=== PATIENT | male | born 1980 | race Caucasian/White ===

== ENCOUNTER → 2017-08-27 15:45 | Outpatient (CLI) | payer BC, SELFPAY ==
[2017-08-27 17:41] LABS: International Normalized Ratio 2.8; Prothrombin Time (Protime)PT. 28.3 SECONDS (11.7-14.9)
== END ==
PROVIDERS: Family Provider Student in an Organized Health Care Education/Training Program; PCP Student in an Organized Health Care Education/Training Program; Visit Provider Internal Medicine Cardiovascular Disease
DX: Z79.01 Long term (current) use of anticoagulants (principal); Z98.890 Other specified postprocedural states; Z95.2 Presence of prosthetic heart valve
CPT/HCPCS: 36415; 85610

== ENCOUNTER 2017-10-05 14:54 | Outpatient (RCR) | payer BC, SELFPAY ==
[2017-10-05 17:12] LABS: International Normalized Ratio 2.5; Prothrombin Time (Protime)PT. 26.8 SECONDS (11.7-14.9)
== END 2017-10-05 15:00 | disposition home or self-care (01) ==
LOC: LAB 14:54
PROVIDERS: Family Provider Student in an Organized Health Care Education/Training Program; PCP Student in an Organized Health Care Education/Training Program; Visit Provider Internal Medicine Cardiovascular Disease
DX: Z79.01 Long term (current) use of anticoagulants (principal); Z95.2 Presence of prosthetic heart valve; Z98.890 Other specified postprocedural states
CPT/HCPCS: 36415; 85610

== ENCOUNTER 2017-11-11 16:16 | Outpatient (RCR) | payer BC, SELFPAY ==
[2017-11-11 16:42] LABS: International Normalized Ratio 2.5; Prothrombin Time (Protime)PT. 27.2 SECONDS (11.7-14.9)
== END 2017-11-11 17:00 | disposition home or self-care (01) ==
LOC: LAB 16:16
PROVIDERS: Family Provider Student in an Organized Health Care Education/Training Program; PCP Student in an Organized Health Care Education/Training Program; Visit Provider Internal Medicine Cardiovascular Disease
DX: Z79.01 Long term (current) use of anticoagulants (principal); Z95.2 Presence of prosthetic heart valve; Z98.890 Other specified postprocedural states
CPT/HCPCS: 36415; 85610

== ENCOUNTER 2017-12-22 15:06 | Outpatient (RCR) | payer BC, SELFPAY ==
[2017-12-22 16:41] LABS: International Normalized Ratio 2.5; Prothrombin Time (Protime)PT. 27.3 SECONDS (11.7-14.9)
== END 2017-12-22 16:00 | disposition home or self-care (01) ==
LOC: LAB 15:06
PROVIDERS: Family Provider Student in an Organized Health Care Education/Training Program; PCP Student in an Organized Health Care Education/Training Program; Visit Provider Internal Medicine Cardiovascular Disease
DX: Z79.01 Long term (current) use of anticoagulants (principal); Z95.2 Presence of prosthetic heart valve; Z98.890 Other specified postprocedural states
CPT/HCPCS: 36415; 85610

== ENCOUNTER 2018-02-09 15:04 | Outpatient (RCR) | payer BC, SELFPAY ==
[2018-02-09 15:48] LABS: International Normalized Ratio 3.2; Prothrombin Time (Protime)PT. 32.8 SECONDS (11.7-14.9)
== END 2018-02-09 16:00 | disposition home or self-care (01) ==
LOC: LAB 15:04
PROVIDERS: Family Provider Student in an Organized Health Care Education/Training Program; PCP Student in an Organized Health Care Education/Training Program; Visit Provider Internal Medicine Cardiovascular Disease
DX: Z79.01 Long term (current) use of anticoagulants (principal); Z95.2 Presence of prosthetic heart valve; Z98.890 Other specified postprocedural states
CPT/HCPCS: 36415; 85610

== ENCOUNTER 2018-04-21 14:50 | Outpatient (RCR) | payer BC, SELFPAY ==
[2018-04-21 16:05] LABS: International Normalized Ratio 3.3; Prothrombin Time (Protime)PT. 33.4 SECONDS (11.7-14.9)
== END 2018-04-21 16:00 | disposition home or self-care (01) ==
LOC: LAB 14:50
PROVIDERS: Family Provider Student in an Organized Health Care Education/Training Program; PCP Student in an Organized Health Care Education/Training Program; Visit Provider Internal Medicine Cardiovascular Disease
DX: Z79.01 Long term (current) use of anticoagulants (principal); Z95.2 Presence of prosthetic heart valve; Z98.890 Other specified postprocedural states
CPT/HCPCS: 36415; 85610

== ENCOUNTER → 2018-05-31 15:10 | Outpatient (CLI) | payer BC, SELFPAY ==
[2018-05-31 16:22] LABS: International Normalized Ratio 3.1; Prothrombin Time (Protime)PT. 32.4 SECONDS (11.7-14.9)
== END ==
PROVIDERS: Family Provider Student in an Organized Health Care Education/Training Program; PCP Student in an Organized Health Care Education/Training Program; Referring Provider Internal Medicine Cardiovascular Disease; Visit Provider Internal Medicine Cardiovascular Disease
DX: Z95.2 Presence of prosthetic heart valve (principal); Z79.01 Long term (current) use of anticoagulants; Z98.890 Other specified postprocedural states
CPT/HCPCS: 36415; 85610

== ENCOUNTER 2018-08-05 15:15 | Outpatient (RCR) | payer BC, SELFPAY ==
[2018-08-05 15:49] LABS: International Normalized Ratio 2.5; Prothrombin Time (Protime)PT. 27.1 SECONDS (11.7-14.9)
== END 2018-08-05 16:00 | disposition home or self-care (01) ==
LOC: LAB 15:15
PROVIDERS: Family Provider Student in an Organized Health Care Education/Training Program; PCP Student in an Organized Health Care Education/Training Program; Referring Provider Internal Medicine Cardiovascular Disease; Visit Provider Internal Medicine Cardiovascular Disease
DX: Z79.01 Long term (current) use of anticoagulants (principal); Z95.2 Presence of prosthetic heart valve; Z98.890 Other specified postprocedural states
CPT/HCPCS: 36415; 85610

== ENCOUNTER → 2018-08-17 16:23 | Outpatient (CLI) | payer BC, SELFPAY ==
[2018-08-17 17:36] LABS: Anion Gap 7 (5-15); BUN 21 mg/dL (7-18); Chloride 107 mmol/L (98-107); Creatinine, Serum 0.91 mg/dL (0.70-1.30); EST Glomerular Filtration Rate 100 mL/min (>60); Est Glom Filt Rate - Afr Amer 120 mL/min (>60); Glucose 86 mg/dL (74-106); Potassium 4.3 mmol/L (3.5-5.1); Sodium Level 142 mmol/L (136-145)
--- OUTSIDE RECORDS SUMMARY | 2018-10-19 22:29 | XMS RPT_ITS ---
:1980 Author Organization [place] Support Name Relationship Address Phone SHANNA BELLAMY Unavailable [address] + [place] [address] URIAH, FLORECITA Unavailable [address] + [place] [address] C [place] Unavailable [address] + [place] [address] URIAH, SHANNA Unavailable [address] + [place] [address] URIAH, FLORECITA Unavailable [address] + [place] [address] C [place] Unavailable [address] + [place] [address] URIAH, SHANNA Unavailable [address] + [place] [address] URIAH, FLORECITA Unavailable [address] + [place] [address] MJC [place] Unavailable [address] + [place] [address] URIAH, SHANNA Unavailable [address] + [place] [address] URIAH, FLORECITA Unavailable [address] + [place] [address] MJC [place] Unavailable [address] + [place] [address] URIAH, SHANNA Unavailable [address] + [place] [address] URIAH, FLORECITA Unavailable [address] + [place] [address] C [place] Unavailable [address] + [place] [address] URIAH, SHANNA Unavailable [address] + [place] [address] URIAH, FLORECITA Unavailable [address] + [place] [address] C [place] Unavailable [address] + [place] [address] URIAH, SHANNA Unavailable [address] + [place] [address] URIAH, FLORECITA Unavailable [address] + [place] [address] C [place] Unavailable [address] + [place] [address] URIAH, SHANNA Unavailable [address] + [place] [address] URIAH, FLORECITA Unavailable [address] + [place] [address] C [place] Unavailable [address] + [place] [address] URIAH, SHANNA Unavailable [address] + [place] [address] URIAH, FLORECITA Unavailable [address] + [place] [address] MJC [place] Unavailable [address] + [place] [address] URIAH, SHANNA Unavailable [address] + [place] [address] URIAH, FLORECITA Unavailable [address] + [place] [address] MJC [place] Unavailable [address] + [place] [address] Care Team Providers Name Role Phone MARY ECHEVERRIA (USER SUPPORT ANALYST SUPERVISOR) Attending Unavailable MARY ECHEVERRIA (USER SUPPORT ANALYST SUPERVISOR) Referring Unavailable MARY ECHEVERRIA (USER SUPPORT ANALYST SUPERVISOR) Referring Unavailable Jeffrey Hernandez Attending Unavailable Chano Valentine Referring Unavailable Jeffrey Hernandez Attending Unavailable Jeffrey Hernandez Referring Unavailable Valentine, Chano Primary Care Unavailable Mary, [place] Attending Unavailable Valentine, Chano Primary Care Unavailable Mary, [place] Attending Unavailable Valentine, Chano Primary Care Unavailable Mary, Jeffrey Attending Unavailable Valentine, Chano Primary Care Unavailable Mary, Jeffrey Referring Unavailable Mary, Jeffrey Attending Unavailable Mary, [place] Referring Unavailable Valentine, Chano Primary Care Unavailable Mary, [place] Attending Unavailable Mary, [place] Referring Unavailable Valentine, Chano Primary Care Unavailable Mary, [place] Attending Unavailable Mary, [place] Referring Unavailable Valentine, Chano Primary Care Unavailable Mary, [place] Attending Unavailable Mary, Jeffrey Referring Unavailable Valentine, Chano Primary Care Unavailable Mary, Jeffrey Attending Unavailable Mary, [place] Referring Unavailable Valentine, Chano Primary Care Unavailable PROBLEMS PROBLEMS DATE TYPE CONDITION / CODE ATTENDING STATUS SOURCE 08/18/2018 Unknown Z95.2 - Presence of Mary, [place] Active [place] prosthetic heart Community valve / Hospital Z95.2(ICD-10) Repository 08/18/2018 Unknown Z98.890 - Other Mary, [place] Active [place] specified Community postprocedural Hospital states / Repository Z98.890(ICD-10) 08/18/2018 Unknown Z86.79 - Personal Mary, [place] Active [place] history of other Community diseases of the Hospital circulatory system / Repository Z86.79(ICD-10) 04/28/2018 Unknown 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, [place] Active [place] (current) use of Community anticoagulants / Hospital Z79.01(ICD-10) Repository 09/16/2017 Active Localized edema / NA Active [facility] R60.0(ICD-10) Clinic Main [place] Repository 08/27/2017 Active Other specified soft NA Active [place] tissue disorders / Clinic Main M79.89(ICD-10) [place] Repository PROCEDURES PROCEDURES No Procedure Records FoundRESULTS RESULTS BASIC METABOLIC Collected: 08/17/2018 Status: F Source: [place] PROFILE (BMP) 4:27 PM [facility] REPOSITORY TYPE CODE TESTS RESULT OUT OF RANGE REFERENCE UNITS LAB L501.0100 74-106 mg/dL Normal GLU 86 Result Comment: Please note revised GLUCOSE reference range effective 2017. LAB L501.1000 7-18 mg/dL High BUN 21 LAB L501.1100 0.70-1.30 mg/dL Normal CREAT,SERUM 0.91 Result Comment: The validity of the calculated GFR AND GFRAA in patients over 70 years has not been determined. Clinical correlation is essential. LAB L501.1110 >60 mL/min Normal EST GFR 100 Result Comment: Non- GFR Calc LAB L501.1115 >60 mL/min Normal EST GFR - AA 120 Result Comment: GFR Calc LAB L501.1300 10-20 RATIO High BUN/CRE 23.0 LAB L501.2200 8.5-10.1 mg/dL CA Normal 9.0 LAB L501.5300 136-145 mmol/L NA Normal 142 LAB L501.5600 3.5-5.1 mmol/L K Normal 4.3 LAB L501.5900 98-107 mmol/L CL Normal 107 LAB L501.6100 21.0-32.0 mmol/L Normal CO2 28.0 LAB L501.6200 5-15 Normal GAP 7 Performed By: #### L500.2500 #### [facility] [address] [place], [address] CARDIOLOGY VISIT Observed: 08/17/2018 Status: F Source: [place] REPORT 4:04 PM [facility] REPOSITORY [facility] [address] [place] [address] OFFICE VISIT Date of Service: 08/17/18 MR#: [id number] Acct: [id number] Name: REMI BELLAMY Rep #: [id number] : 1980 Provider: Jeffrey Hernandez MD Age/Sex: 38/M [place] [facility] [place] Signed [facility] Chief Complaint: Follow-up visit Details: REMI BELLAMY, is a 38 M who presents to the office today for a follow-up visit. He is a gentleman with a history of an abnormal aortic valve who underwent aortic valve replacement with a [employer] mechanical prosthetic valve with a tube graft replacement of the ascending aorta for an ascending aortic aneurysm. He continues to do remarkably well denying any chest pain or shortness of breath or paroxysmal nocturnal dyspnea pedal edema he has had no neck arm or jaw discomfort suggest angina he remains on his anticoagulation. His physical exam here today demonstrates clear lung win regular rate and rhythm a prosthetic mechanical sound with no pedal edema noted. All Intake Vital Signs08/17/18 Height 5 ft 10 in 08/17/18 Weight: 17 lb 08/17/18 Body Mass Index (BMI) 2.4 08/17/18 Blood Pressure 118/82 H H 08/17/18 Blood Pressure Location Lt brachial Intake Visit Reasons: 1 Y FU (we r/s from 06-24 AND 07-15) Esl Teacher Required: No Accompanied by: none Is patient in pain?: No Allergies fentanyl Allergy (Verified 08/17/18 15:45) Itching Medications warfarin 4 mg tablet 4 mg PO .COMPLEX #180 tab 08/21/17 [Rx Confirmed 08/17/18] warfarin 6 mg tablet 6 mg PO .COMPLEX #180 tab 08/21/17 [Rx Confirmed 08/17/18] [facility] Medical History Nonrheumatic mitral (valve) insufficiency (Chronic) Hyperlipidemia (Chronic) History of pericarditis (Chronic) History of bicuspid aortic valve (Chronic) penitentiary current use of anticoagulant (Chronic) Surgical History H/O thoracic aortic aneurysm repair (Chronic) H/O mechanical aortic valve replacement (Chronic) Family History Mother Hypertension Social History Smoking Status: Former smoker ROS Const Const: Negative for fatigue, weakness, night sweats, excessive sweating, frequent falls, headache(s) or daytime sleepiness Eyes Eyes: Negative for loss of peripheral vision, transient loss of vision, blind spots, double vision or blurry vision ENT ENT: Negative for headache(s), dizziness, balance problems, Nosebleed/epistaxis, tongue swelling or lip swelling Cardio Chest Pain: No Palpitations: No Edema: None Muscle aches with walking: None Resp Respiratory: Negative for SOB at rest, SOB orthopnea\SOB lying down, Cough, paroxysmal nocturnal dyspnea or SOB with activity GI GI: Negative nausea, vomiting, heartburn, black,tarry stools or bright, red blood in stools : Negative for hematuria Musc Musc: Negative for balance problems, muscle aches/ myalgia, muscle weakness or joint pain Skin Skin: Negative non-healing lesions, unusual bruising or rash Neuro Neuro: Negative for weakness, frequent falls, headache(s), double vision, dizziness, lightheadedness, orthostatic symptoms, blurry vision or lack of coordination Gianni Hematologic/Lymphatic: Negative for easy bruising or easy bleeding Endo Endo: Negative for fatigue, excessive sweating, cold intolerance, heat intolerance, increased thirst/drinking or hair loss Psych Psych: Negative for anxiety or depression Allergy Allergy/Immunology: Negative for throat swelling, Negative for tongue swelling, Negative for hives, Negative for rash, Negative for lip swelling Cardiology Exam Const Appearance: cooperative, healthy appearing, well developed, well groomed and no acute distress Nutritional Appearance: well nourished and average body habitus Orientation: alert, awake and oriented x3 Head Head: normal to inspection, normocephalic and atraumatic Ears: hearing grossly normal bilaterally and external ears normal Nose: external nose normal, nasal mucous membranes and turbinates normal, nares normal, septum normal, no nasal discharge Face and Sinus: face symmetric Mouth: oral mucosae normal, tongue normal, oropharynx normal and moist mucous membranes Teeth and gingiva: dentition normal Throat: posterior oropharynx normal, tonsils normal and uvula midline Eyes General: appearance normal, both eyes and all related structures Eyelids: eyelids normal Conjunctivae: conjunctivae normal Pupils: PERRL, normal by confrontation and accommodation normal EOM: EOM intact bilaterally Neck Neck: normal visual inspection, trachea midline and no JVD JVD: +5 Carotids: normal carotid upstroke and bounding pulses Chest Chest inspection: normal inspection of the chest, symmetric chest movement and normal respiratory effort Auscultation: Bilateral: Clear to Auscultation Cardio Palpation: normal PMI Rhythm: regular rhythm Heart sounds: crisp prosthetic S1 and crisp prosthetic S2 GI GI: normal to inspection, soft, no hepatosplenomegaly and bowel sounds present Neuro General: alert, awake, oriented x3, no focal sensory deficit, gait normal and moves all extremities Skin Skin: no rashes or lesions noted Extremities Pulses: Normal: Right Femoral Pulse, Left Femoral Pulse, Right Dorsalis Pedis Pulse, Left Dorsalis Pedis Pulse, Right Posterior Tibial Pulse, Left Posterior Tibial Pulse, Right Radial Pulse, Left Radial Pulse Lower Extremity Edema: None: Bilateral Musculoskel Musculoskeletal: No joint tenderness Psych Psychological: normal affect Assessment AND Plan 1. H/O mechanical aortic valve replacement Z95.2 06/29/2013 @ [facility] per Dr. Garry Flores Plan He does have a mechanical aortic valve replacement. This appears to be functioning well his last echocardiogram was over 3 years ago I recommend that we obtain a repeat CT to assess his aortic valve gradients. He will continue with anticoagulation maintaining his INR of 2.5-3.5. Orders Orders: 2. H/O thoracic aortic aneurysm repair Z98.890; Z86.79 06/29/2013 @ [facility] per Dr. Garry Flores Plan He is status post thoracic aortic aneurysm repair. I recommend that we obtain a CT scan of his chest to ascertain stability of the above. All Thank you for allowing me to participate in the care of your patient. 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) Coding Level of Care Code Off vis,est,level 3 Diagnoses H/O mechanical aortic valve replacement Z95.2 H/O thoracic aortic aneurysm repair Z98.890; Z86.79 Coding Level of Care Code Off vis,est,level 3 Diagnoses H/O mechanical aortic valve replacement Z95.2 H/O thoracic aortic aneurysm repair Z98.890; Z86.79 Supplemental Info Supplemental Information Labs LDL Cholesterol 104 mg/dL (0-130) 03/25/17 HDL Cholesterol 70 mg/dL (40-) 03/25/17 Triglycerides 120 mg/dL (-199) 03/25/17 VLDL Cholesterol 24 mg/dL (5-40) 03/25/17 08/17/18 1604 <Electronically signed by Jeffrey Hernandez MD> Date Jeffrey Hernandez MD Cosigner Signature: Date (if applicable) CC: Chano Cat DO PROTHROMBIN TIME W/INR Collected: 08/05/2018 Status: F Source: [place] 3:16 PM [facility] REPOSITORY TYPE CODE TESTS RESULT OUT OF RANGE REFERENCE UNITS LAB L300.4150 11.7-14.9 SECONDS High PROTIME 27.1 LAB L300.4200 Normal INR 2.5 Performed By: #### L300.3900 #### [facility] [address] [place], [place], [address] (347) PROTHROMBIN TIME W/INR Collected: 05/31/2018 Status: F Source: [place] 3:25 PM [facility] REPOSITORY TYPE CODE TESTS RESULT OUT OF RANGE REFERENCE UNITS LAB L300.4150 11.7-14.9 SECONDS High PROTIME 32.4 LAB L300.4200 Normal INR 3.1 Performed By: #### L300.3900 #### [facility] [address] [place], [address] PROTHROMBIN TIME W/INR Collected: 04/21/2018 Status: F Source: [place] 2:59 PM [facility] REPOSITORY TYPE CODE TESTS RESULT OUT OF RANGE REFERENCE UNITS LAB L300.4150 11.7-14.9 SECONDS High PROTIME 33.4 LAB L300.4200 Normal INR 3.3 Performed By: #### L300.3900 #### [facility] [place], [address] PROTHROMBIN TIME W/INR Collected: 02/09/2018 Status: F Source: [place] 3:14 PM [facility] REPOSITORY Order Comment: Comments: STANDING ORDER Comments: STANDING ORDER TYPE CODE TESTS RESULT OUT OF RANGE REFERENCE UNITS LAB L300.4150 11.7-14.9 SECONDS High PROTIME 32.8 LAB L300.4200 Normal INR 3.2 Performed By: #### L300.3900 #### [facility] [address] [place], [address] PROTHROMBIN TIME W/INR Collected: 12/22/2017 Status: F Source: [place] 3:16 PM [facility] REPOSITORY TYPE CODE TESTS RESULT OUT OF RANGE REFERENCE UNITS LAB L300.4150 11.7-14.9 SECONDS High PROTIME 27.3 LAB L300.4200 Normal INR 2.5 Performed By: #### L300.3900 #### [facility] [address] [place], [address] PROTHROMBIN TIME W/INR Collected: 11/11/2017 Status: F Source: [place] 4:20 PM [facility] REPOSITORY TYPE CODE TESTS RESULT OUT OF RANGE REFERENCE UNITS LAB L300.4150 11.7-14.9 SECONDS High PROTIME 27.2 LAB L300.4200 Normal INR 2.5 Performed By: #### L300.3900 #### [facility] [address] [place], [address] PROTHROMBIN TIME W/INR Collected: 10/05/2017 Status: F Source: [place] 3:25 PM [facility] REPOSITORY Order Comment: Comments: Standing Order Comments: Standing Order TYPE CODE TESTS RESULT OUT OF RANGE REFERENCE UNITS LAB L300.4150 11.7-14.9 SECONDS High PROTIME 26.8 LAB L300.4200 Normal INR 2.5 Performed By: #### L300.3900 #### [facility] [address] [place], [address] COMP METABOLIC PANEL Collected: 09/16/2017 Status: F Source: [place] 3:29 PM [facility] REPOSITORY TYPE CODE TESTS RESULT OUT OF REFERENCE UNITS RANGE LAB TP 6.3-8.0 g/dL Protein, Total 7.0 LAB ALB 3.9-4.9 g/dL Albumin 4.5 LAB CA 8.5-10.2 mg/dL Calcium, Total 9.3 LAB TBIL 0.2-1.3 mg/dL Bilirubin, Total 0.5 LAB ALKP 36-108 U/L Alkaline Phosphatase 46 LAB AST 14-40 U/L AST 20 LAB GLU 74-99 mg/dL Glucose 89 Result Comment: The [place] [employer] (ADA) provides guidance for cutoff values for fasting glucose and random glucose. The ADA defines fasting as no caloric intake for at least 8 hours. Fas ting plasma glucose results between 100 to 125 mg/dL indicate increased risk for diabetes (prediabetes). Fasting plasma glucose results greater than or equal to 126 mg/dL meet the criteria for diagnosis of diabetes. In the absence of unequivocal hyperglycemia, results should be confirmed by repeat testing. In a patient with classic symptoms of hyperglycemia or hyperglycemic crisis, random plasma glucose results greater than or equal to 200 mg/dL meet the criteria for diagnosis of diabetes. Reference: Standards of Medical Care in Diabetes 2016, [place] [employer] Association. Diabetes Care. 2016.39(Suppl 1). LAB BUN 9-24 mg/dL BUN 22 LAB CRET 0.73-1.22 mg/dL Creatinine 1.16 LAB NA 136-144 mmol/L Sodium 139 LAB K 3.7-5.1 mmol/L Potassium 4.4 LAB CL 97-105 mmol/L Chloride 103 LAB CO2 22-30 mmol/L CO2 27 LAB AGAP 9-18 mmol/L Anion Gap 9 LAB ALT 10-54 U/L ALT 15 LAB GFRAA eGFR- Amer. >60 LAB GFRNAA . eGFR-All Other Races >60 Result Comment: eGFR (Estimated GFR) Units of measure: mL/min/1.73 meters squared eGFR is derived from the reexpressed MDRD Study equation using the following parameters: serum creatinine, age, gender and race. The creatinine assay has been calibrated to be traceable to IDMS. An eGFR <60 mL/min/1.73m2 for >3 months is consistent with chronic kidney disease. Refer to KDOQI guidelines for clinical interpretation. In patients with unstable renal function, e.g. those with acute kidney injury, the eGFR may not accurately reflect actual GFR. Performed By: #### CMP, NTBNP, CBCDIF #### [facility] [address] [place], [place] [id number] NT PRO BNP Collected: 09/16/2017 Status: F Source: [place] 3:29 PM [facility] REPOSITORY TYPE CODE TESTS RESULT OUT OF REFERENCE UNITS RANGE LAB PBNP <125 pg/mL PRO B Natr 92 Peptide Performed By: #### CMP, NTBNP, CBCDIF #### [facility] [address] [place], [place] [address] CBC AND DIFFERENTIAL Collected: 09/16/2017 Status: F Source: [place] 3:29 PM [facility] REPOSITORY TYPE CODE TESTS RESULT OUT OF REFERENCE UNITS RANGE LAB WBC 3.70-11.00 k/uL WBC 7.66 LAB RBC 4.20-6.00 m/uL RBC 4.49 LAB HGB 13.0-17.0 g/dL Hemoglobin 13.4 LAB HCT 39.0-51.0 % Hematocrit 40.1 LAB MCV 80.0-100.0 fL MCV 89.3 LAB MCH 26.0-34.0 pG MCH 29.8 LAB MCHC 30.5-36.0 g/dL MCHC 33.4 LAB RDWCV 11.5-15.0 % RDW-CV 13.0 LAB PLTCT 150-400 k/uL Platelet Count 228 LAB MPV 9.0-12.7 fL MPV 11.0 LAB ANEUT % Neut% 66.8 LAB AANEUT 1.45-7.50 k/uL Abs Neut 5.10 LAB ALYMP % Lymph% 24.3 LAB AALYMP 1.00-4.00 k/uL Abs Lymph 1.86 LAB AMONO % Lane% 7.3 LAB AAMONO <0.87 k/uL Abs Lane 0.56 LAB AEOS % Eosin% 0.9 LAB AAEOS <0.46 k/uL Abs Eosin 0.07 LAB ABASO % Baso% 0.7 LAB AABASO <0.11 k/uL Abs Baso 0.05 LAB AUNRBC 0 /100 WBC NRBCs 0.0 LAB ABNRBC <0.01 k/uL Absolute nRBC <0.01 LAB DTYP DTYPE Auto Diff Performed By: #### CMP, NTBNP, CBCDIF #### [facility] [address] [place], [place] [address] PROTHROMBIN TIME W/INR Collected: 08/27/2017 Status: F Source: [place] 4:02 [facility] REPOSITORY TYPE CODE TESTS RESULT OUT OF RANGE REFERENCE UNITS LAB L300.4150 11.7-14.9 SECONDS High PROTIME 28.3 LAB L300.4200 Normal INR 2.8 Performed By: #### L300.3900 #### [facility] [address] [place], [address] PROGRESS Observed: 08/27/2017 Status: COMPLETED Source: [place] 3:42 PM [facility] REPOSITORY HNO ID: [id number] Author: Mary Trevizo (Lashaun) Corniello, USER SUPPORT ANALYST SUPERVISOR Service: (none) Author Type: Nurse Practitioner Type: Progress Notes Filed: 08/27/2017 3:47 PM Note Text: HPI/CC: Remi Bellamy is a 37 year old male who presents for left foot edema that started a few days ago. Reports mild discomfort with ambulation. Denies redness, tenderness, weakness, numbness or tingling, decreased sensation, SOB, CP. Concerned d/t heart hx No known trauma but does drop things on his feet at work. ROS as above, otherwise non-contributory. Reviewed PMHx, PSHx, social Hx, medications and allergies. PHYSICAL EXAMINATION: BP 130/72 Pulse 72 Resp 14 Wt 81.6 kg (180 lb) SpO2 100% BMI 26.2 kg/m2 General appearance: Well appearing, alert, in no acute distress, well-hydrated, well nourished. Skin: Skin color, texture, turgor normal, no suspicious rashes or lesions Lungs: Lungs clear to auscultation. No wheezing, rhonchi, rales Heart: RRR without murmur, gallop, or rubs. No ectopy Feet: Shoes and socks removed, No deformities, ulcers, calluses, normal distal pulses and edema to digits, no erythema, ecchymosis or tenderness to palpation ASSESSMENT/PLAN: 1. Swelling of toe of left foot - ICD9: 729.81, ICD10: M79.89 - XR FOOT GENERAL 3V AP/LAT/OBL LT - RICE therapy and monitor. Mary Echeverria CNP XR FOOT 3V AP/LAT/OBL Observed: 08/27/2017 Status: F Source: [facility] 3:35 PM [facility] REPOSITORY * * *Final Report* * * DATE OF EXAM: Aug 27 2017 3:35PM WOX [id number] - XR FOOT 3V AP/LAT/OBL LT / PROCEDURE REASON: Other specified soft tissue disorders * * * * Physician Interpretation * * * * HISTORY: left dorsal pain across the metatarsal for 3 days. no injury. Other specified soft tissue disorders . TECHNIQUE: XR FOOT 3V AP/LAT/OBL LT Laterality: LEFT Number of different views (projections): 3 COMPARISON: 2014 RESULT: Satisfactory alignment. No discrete soft tissue swelling. No fracture, no focal acute periostitis. IMPRESSION: No active bone or articular disease. Blind Aide: FACUNDO Transcribe Date/Time: Aug 27 2017 9:31P Dictated by : REMI RICHARDSON MD This examination was interpreted and the report reviewed and electronically signed by: REMI RICHARDSON MD on Aug 27 2017 9:33PM EST [id number] PROGRESS Observed: 08/27/2017 Status: COMPLETED Source: [place] 3:28 PM [facility] REPOSITORY HNO ID: [id number] Author: Marge Boss Service: (none) Author Type: (none) Type: Progress Notes Filed: 08/27/2017 3:36 PM Note Text: Radiology Service Progress Note PATIENT NAME: Remi Bellamy DATE OF SERVICE: August 27, 2017 TIME: 3:28 PM PATIENT IDENTITY VERIFICATION COMPLETED USING TWO (2) METHODS: Patient confirmed name verbally and Date of . PATIENT GENDER DATA: Male PATIENT RELEVANT IMPLANT DATA REVIEWED: Not Applicable RADIOLOGY DEPARTMENT: General X-ray: Exam(s) Completed: Lower Extremity X-Ray(s): Foot, Left and Wt. Bearing: PERIPHERAL IV DATA: Not applicable SIGNED BY: Marge Boss August 27, 2017 3:28 PM ALLERGIES ALLERGIES DATE TYPE / CODE NAME / CODE REACTION SEVERITY SOURCE 08/17/2018 Drug fentanyl/[id number] Itching Unknown [facility] Allergy/416 3571(RXNORM) Hospital 191323(SNOM Repository ED CT) 08/25/2013 DRUG FENTANYL ITCHING [facility] INGREDI/419 [facility] [place] 233260(SNOM Repository ED CT) ENCOUNTERS ENCOUNTERS ADMIT/DISCHARGE ACCOUNT ADMITTING ENCOUNTER LOCATION SOURCE NUMBER CLASS 08/17/2018 [id number] [facility] ing:LAB Repository 08/17/2018/08/17/19 [id number] Ambulatory BMSBuilding:[place] [address] Repository 08/05/2018 [id number] Ambulatory [facility] ing:LAB Repository 05/31/2018 [id number] Ambulatory [facility] ing:LAB Repository 04/21/2018/04/21/20 [id number] Ambulatory [address] ing:LAB Repository 02/09/2018/02/10/20 [id number] Ambulatory [facility] [facility] ing:LAB Repository 12/22/2017/12/23/19 [id number] [place] ing:LAB Repository 11/11/2017/11/12/19 [id number] Ambulatory [place] ing:LAB Repository 10/05/2017/10/06/19 [id number] [place] ing:LAB Repository 09/16/2017 [id number] Ambulatory [facility] Repository 08/27/2017 [id number] [facility] ing:LAB Repository 08/27/2017/08/27/19 [id number] Ambulatory [address] Repository 08/27/2017/08/27/19 [id number] Ambulatory [address] Street Repository PAYERS PAYERS ENCOUNTER GUARANTOR PAYER SUBSCRIBER SOURCE 08/17/2018 REMI Garza Primary REMI Huynh [id number] E Insurance:ANTHEMPolic MASSARODOB: [facility] y Number: [id number], [place] [id number] Repository 37043Qcf: (330) Date:3231-68-66VI [phone] () [id number] [place] [address] 40632ST: 08/17/2018 Secondary NOT GIVENUNK [place] Insurance:SELF PAY [facility] Number: Effective Repository Date:2018-08-17 08/17/2018 REMI Garza Primary REMI Huynh [id number] E Insurance:ANTHEMPolic MASSARODOB: [facility] y Number: [id number], [place] [id number] Repository 71640Mwe: (330) Date:1811-52-28OQ [phone] () [id number] [place] [address] 18573QR: 08/17/2018 Secondary NOT GIVENUNK [place] Insurance:SELF PAY [facility] Number: Effective Repository Date:2018-06-23 08/05/2018 REMI Garza Primary REMI K [place] [id number] E Insurance:ANTHEMPolic [place]: [facility] [place] y Number: [id number], [place] [id number] Repository 39408Ewt: (330) Date:0424-25-05HB [phone] () NAIF CRUZ [id number]: 08/05/2018 Secondary NOT GIVENUNK [place] Insurance:SELF PAY [facility] Number: Effective Repository Date:2018-04-28 05/31/2018 REMI Kayla Primary REMI Huynh [id number] E Insurance:ANTHEMPolic [place]AR[place]OB: [facility] [place] y Number: [id number], [place] [id number] Repository 54042Hkj: (330) Date:7287-04-02ZC [phone] () NAIF CRUZ [id number]: 05/31/2018 Secondary NOT GIVENUNK [place] Insurance:SELF PAY [facility] Number: Effective Repository Date:2018-05-31 04/21/2018 Remi Garza Primary Remi Huynh [id number] E Insurance:ANTHEMPolic MassaroDOB: Community [place] y Number: [id number], [place] [id number] Repository 47423Rxe: (330) Date:7332-78-95FZ [phone] () [id number], [place] [address]VV: 04/21/2018 Secondary NOT GIVENUNK [place] Insurance:SELF PAY [facility] Number: Effective Repository Date:2018-02-25 02/09/2018 Remi Garza Primary Remi Huynh [id number] E Insurance:ANTHEMPolic MassaroDOB: Community [place] y Number: [id number] [id number] Repository 26897Fad: (330) Date:7483-18-46PM [phone] () NAIF CRUZ [id number]: 02/09/2018 Secondary NOT GIVENUNK [place] Insurance:SELF PAY [facility] Number: Effective Repository Date:2017-12-24 12/22/2017 Remi Garza Primary Remi Huynh [id number] E Insurance:ANTHEMPolic MassaroDOB: Community [place] y Number: [id number], [place] [id number] Repository 89597Zfo: 330) Date:6644-09-61DV [phone] () [id number], [place] [address]JV: 12/22/2017 Secondary NOT GIVENUNK [place] Insurance:SELF PAY [facility] Number: Effective Repository Date:2017-11-24 11/11/2017 Remi Garza Primary Remi Huynh [id number] Insurance:ANTHEMPolic MassaroDOB: Community [place] y Number: [id number], [place] [id number] Repository 08926Bux: (330) Date:7322-29-40BC [phone] () [id number], [place] [address]WN: 11/11/2017 Secondary NOT GIVENUNK [place] Insurance:SELF PAY [facility] Number: Effective Repository Date:2017-10-26 10/05/2017 Remi Garza Primary Remi Huynh [id number] E Insurance:ANTHEMPolic MassaroDOB: Community [place] y Number: [id number], [place] [id number] Repository 53[address]Ctn: (330) Date:0514-98-20EY [phone] () [id number] [place] [address]NW: 10/05/2017 Secondary NOT GIVENUNK [place] Insurance:SELF PAY [facility] Number: Effective Repository Date:2017-06-28 08/27/2017 Remi Garza Primary Remi Huynh [id number] E Insurance:ANTHEMPolic MassaroDOB: Community [place] y Number: [id number], [place] [id number] Repository 62[address]Txk: ([phone]) Date:5788-41-46DQ [phone] () [id number], [place] [address]HK: 08/27/2017 Secondary NOT GIVENUNK [place] Insurance:SELF PAY [facility]: Effective Repository Date:2017-08-27
== END ==
PROVIDERS: Family Provider Student in an Organized Health Care Education/Training Program; PCP Student in an Organized Health Care Education/Training Program; Referring Provider Internal Medicine Cardiovascular Disease; Visit Provider Internal Medicine Cardiovascular Disease
DX: Z95.2 Presence of prosthetic heart valve (principal)
CPT/HCPCS: 36415; 80048

== ENCOUNTER → 2018-08-24 15:48 | Outpatient (CLI) | payer BC, SELFPAY ==
--- NOTE | 2018-08-24 15:49 | ECHOD_ITS ---
Version 2 Reason For Study: AVR Procedure This was a 2D Doppler, Color Flow transthoracic echocardiogram. Exam performed in department. Left Ventricle Normal LV size. Left ventricular systolic function is normal. The estimated ejection fraction is 55 %. No evidence for diastolic dysfunction. No regional wall motion abnormalities noted. Tricuspid Valve Normal tricuspid valve. Aortic Valve Peak aortic valve gradient 19 mmHg. Mean aortic valve gradient 11 mmHg. Stable appearing mechanical aortic valve apparatus. Great Vessels Normal aortic root. The pulmonary artery is normal size. Normal inferior vena cava. Pericardium/Pleural No pericardial effusion. MMode/2D Measurements & Calculations LVIDd: 4.8 cm IVSd: 1.00 cm LVOT diam: 2.0 cm LVIDs: 2.8 cm LVPWd: 1.1 cm RVDd: 3.9 cm FS: 41.2 % LVOT area: 3.0 cm2 Ao root diam: 2.6 cm LAV(MOD-bp): 42.2 ml LA A4 area: 14.4 cm2 LAV(MOD-bp) Indexed: 21.7 ml/m2 LAV(MOD-sp2): 54.7 ml LAV(MOD-sp4): 32.7 ml LA dimension(2D): 3.3 cm RA A4 area: 14.0 cm2 Time Measurements MV dec time: 0.33 sec Doppler Measurements & Calculations MV E max malik: 54.2 cm/sec Lat Peak E' Malik: 14.5 cm/sec Med Peak E' Malik: 7.7 cm/sec MV A max malik: 41.7 cm/sec E/E' lat: 3.7 E/E' med: 7.0 MV E/A: 1.3 Ao V2 max: 219.2 cm/sec AI max malik: 168.1 cm/sec LV V1 max: 120.9 cm/sec Ao max P.3 mmHg AI max P.3 mmHg LV V1 max P.8 mmHg Ao V2 mean: 156.7 cm/sec LV V1 mean P.7 mmHg Ao mean P.1 mmHg AI dec slope: 156.7 cm/sec2 LV V1 mean: 74.9 cm/sec Ao V2 VTI: 39.1 cm AI P1/2t: 314.2 msec LV V1 VTI: 21.3 cm VICKY(I,D): 1.6 cm2 VICKY(V,D): 1.7 cm2 SV(LVOT): 64.2 ml PA V2 max: 84.6 cm/sec TR max malik: 197.7 cm/sec TR max P.7 mmHg Interpretation Summary Normal LV size. Left ventricular systolic function is normal. The estimated ejection fraction is 55 %. No evidence for diastolic dysfunction. Mean aortic valve gradient 11 mmHg. Stable appearing mechanical aortic valve apparatus. Ordering Physician: Jefrfey Hernandez Referring Physician: RALF CHAVEZ Performed By: Caren Mota, EDCS, RVT
--- NOTE | 2018-08-24 16:32 | CT_ITS ---
STUDY: CTA CHEST REASON FOR EXAM: Male, 38 years old. Aortic valve and aortic repair RADIATION DOSAGE (If Supplied By Facility): CTDIvol = ( 23.46 ) mGy, DLP = ( 636.54 ) mGycm TECHNIQUE: The examination was performed with the intravenous administration of 100 ml of Isovue 300 contrast material. Post-processing of the angiographic images was performed, with multiplanar reformation and 3D reconstruction. Individualized dose optimization techniques were used for this CT. COMPARISON: August 05, 2014 FINDINGS: Normal enhancement of the main pulmonary artery and right and left pulmonary arteries. Normal enhancement of the bilateral peripheral pulmonary arteries. There is no demonstrated pulmonary embolism. There is mild aneurysmal dilatation of the distal ascending aorta proximal to the arch measuring approximately 4 x 3.9 cm. The aorta then becomes more normal caliber at the level of the arch and distally There is no demonstrated aortic dissection. There is prominence of the cardiac silhouette and postsurgical changes status post aortic valve replacement. Normal mediastinum. Normal hilar regions. Normal visualized trachea and bronchi. The lungs are well expanded. There is mild diffuse interstitial thickening. There is no focal infiltration. There is minor atelectasis within the dependent portion of the lungs Normal pleura. Postsurgical changes status post median sternotomy Dorsal spine demonstrates mild spondylosis Normal visualized upper abdomen. 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 Electronically Signed: Lev Little MD at 21:36 EST , Service support ,
== END ==
PROVIDERS: Family Provider Student in an Organized Health Care Education/Training Program; PCP Student in an Organized Health Care Education/Training Program; Referring Provider Internal Medicine Cardiovascular Disease; Visit Provider Internal Medicine Cardiovascular Disease
DX: Z95.2 Presence of prosthetic heart valve (principal); Z86.79 Personal history of other diseases of the circulatory system; Z98.890 Other specified postprocedural states
CPT/HCPCS: 71275; 93306; Q9967

== ENCOUNTER 2018-10-27 14:48 | Outpatient (RCR) | payer BC, SELFPAY ==
[2018-10-27 17:29] LABS: International Normalized Ratio 2.5; Prothrombin Time (Protime)PT. 27.3 SECONDS (11.7-14.9)
== END 2018-11-23 16:00 | disposition home or self-care (01) ==
LOC: LAB 14:48
PROVIDERS: Family Provider Student in an Organized Health Care Education/Training Program; PCP Student in an Organized Health Care Education/Training Program; Referring Provider Internal Medicine Cardiovascular Disease; Visit Provider Internal Medicine Cardiovascular Disease
DX: Z79.01 Long term (current) use of anticoagulants (principal); Z95.2 Presence of prosthetic heart valve; Z98.890 Other specified postprocedural states
CPT/HCPCS: 36415; 85610

== ENCOUNTER 2018-12-10 14:58 | Outpatient (RCR) | payer BC, SELFPAY ==
[2018-12-10 16:00] LABS: International Normalized Ratio 2.5; Prothrombin Time (Protime)PT. 26.8 SECONDS (11.7-14.9)
== END 2018-12-10 16:00 | disposition home or self-care (01) ==
LOC: LAB 14:58
PROVIDERS: Family Provider Student in an Organized Health Care Education/Training Program; PCP Student in an Organized Health Care Education/Training Program; Referring Provider Internal Medicine Cardiovascular Disease; Visit Provider Internal Medicine Cardiovascular Disease
DX: Z79.01 Long term (current) use of anticoagulants (principal); Z95.2 Presence of prosthetic heart valve; Z98.890 Other specified postprocedural states
CPT/HCPCS: 36415; 85610

== ENCOUNTER 2019-02-04 15:49 | Outpatient (RCR) | payer BC, SELFPAY ==
[2019-02-04 17:44] LABS: International Normalized Ratio 2.2; Prothrombin Time (Protime)PT. 24.5 SECONDS (11.7-14.9)
== END 2019-02-04 16:00 | disposition home or self-care (01) ==
LOC: LAB 15:49
PROVIDERS: Family Provider Student in an Organized Health Care Education/Training Program; PCP Student in an Organized Health Care Education/Training Program; Referring Provider Internal Medicine Cardiovascular Disease; Visit Provider Internal Medicine Cardiovascular Disease
DX: Z98.890 Other specified postprocedural states (principal); Z79.01 Long term (current) use of anticoagulants; Z95.2 Presence of prosthetic heart valve
CPT/HCPCS: 36415; 85610

== ENCOUNTER 2019-02-25 15:00 | Outpatient (RCR) | payer BC, SELFPAY ==
[2019-02-25 16:22] LABS: International Normalized Ratio 3.1; Prothrombin Time (Protime)PT. 31.8 SECONDS (11.7-14.9)
== END 2019-02-25 16:00 | disposition home or self-care (01) ==
LOC: LAB 15:00
PROVIDERS: Family Provider Student in an Organized Health Care Education/Training Program; PCP Student in an Organized Health Care Education/Training Program; Referring Provider Internal Medicine Cardiovascular Disease; Visit Provider Internal Medicine Cardiovascular Disease
DX: Z98.890 Other specified postprocedural states (principal); Z79.01 Long term (current) use of anticoagulants; Z95.2 Presence of prosthetic heart valve
CPT/HCPCS: 36415; 85610

== ENCOUNTER 2019-04-01 14:55 | Outpatient (RCR) | payer BC, SELFPAY ==
[2019-04-01 15:42] LABS: International Normalized Ratio 3.3; Prothrombin Time (Protime)PT. 33.8 SECONDS (11.7-14.9)
== END 2019-04-01 17:00 | disposition home or self-care (01) ==
LOC: LAB 14:55
PROVIDERS: Family Provider Student in an Organized Health Care Education/Training Program; PCP Student in an Organized Health Care Education/Training Program; Referring Provider Internal Medicine Cardiovascular Disease; Visit Provider Internal Medicine Cardiovascular Disease
DX: Z98.890 Other specified postprocedural states (principal); Z79.01 Long term (current) use of anticoagulants; Z95.2 Presence of prosthetic heart valve
CPT/HCPCS: 36415; 85610

== ENCOUNTER 2019-05-09 14:49 | Outpatient (RCR) | payer BC, SELFPAY ==
[2019-05-09 15:57] LABS: Prothrombin Time (Protime)PT. 31.3 SECONDS (11.7-14.9)
== END 2019-05-09 18:00 | disposition home or self-care (01) ==
LOC: LAB 14:49
PROVIDERS: Family Provider Student in an Organized Health Care Education/Training Program; PCP Student in an Organized Health Care Education/Training Program; Referring Provider Internal Medicine Cardiovascular Disease; Visit Provider Internal Medicine Cardiovascular Disease
DX: Z98.890 Other specified postprocedural states (principal); Z79.01 Long term (current) use of anticoagulants; Z95.2 Presence of prosthetic heart valve
CPT/HCPCS: 36415; 85610

== ENCOUNTER 2019-06-30 14:58 | Outpatient (RCR) | payer BC, SELFPAY ==
[2019-06-30 16:19] LABS: International Normalized Ratio 3.4; Prothrombin Time (Protime)PT. 34.9 SECONDS (11.7-14.9)
== END 2019-06-30 18:00 | disposition home or self-care (01) ==
LOC: LAB 14:58
PROVIDERS: Family Provider Student in an Organized Health Care Education/Training Program; PCP Student in an Organized Health Care Education/Training Program; Referring Provider Internal Medicine Cardiovascular Disease; Visit Provider Internal Medicine Cardiovascular Disease
DX: Z98.890 Other specified postprocedural states (principal); Z79.01 Long term (current) use of anticoagulants; Z95.2 Presence of prosthetic heart valve
CPT/HCPCS: 36415; 85610

== ENCOUNTER 2019-08-16 15:47 | Outpatient (RCR) | payer BC, SELFPAY ==
[2019-08-16 16:37] LABS: International Normalized Ratio 2.8; Prothrombin Time (Protime)PT. 29.4 SECONDS (11.7-14.9)
== END 2019-08-16 18:00 | disposition home or self-care (01) ==
LOC: LAB 15:47
PROVIDERS: Family Provider Student in an Organized Health Care Education/Training Program; PCP Student in an Organized Health Care Education/Training Program; Referring Provider Internal Medicine Cardiovascular Disease; Visit Provider Internal Medicine Cardiovascular Disease
DX: Z98.890 Other specified postprocedural states (principal); Z79.01 Long term (current) use of anticoagulants; Z95.2 Presence of prosthetic heart valve
CPT/HCPCS: 36415; 85610

== ENCOUNTER 2019-12-15 09:45 | Outpatient (RCR) | payer BC, SELFPAY ==
[2019-08-16 16:00] VITALS: BMI 26.2
[2019-12-15 11:27] LABS: International Normalized Ratio 2.8; Prothrombin Time (Protime)PT. 29.3 SECONDS (11.7-14.9)
== END 2019-12-15 18:00 | disposition home or self-care (01) ==
LOC: LAB 09:45
PROVIDERS: Family Provider Student in an Organized Health Care Education/Training Program; PCP Student in an Organized Health Care Education/Training Program; Referring Provider Internal Medicine Cardiovascular Disease; Visit Provider Internal Medicine Cardiovascular Disease
DX: Z98.890 Other specified postprocedural states (principal); Z79.01 Long term (current) use of anticoagulants; Z95.2 Presence of prosthetic heart valve
CPT/HCPCS: 36415; 85610

== ENCOUNTER 2020-01-02 15:49 | Outpatient (RCR) | payer BC, SELFPAY ==
[2019-08-16 16:00] VITALS: BMI 26.2
[2020-01-02 16:47] LABS: Prothrombin Time (Protime)PT. 31.1 SECONDS (11.7-14.9)
[2020-01-03 10:15] LABS: HIV - WCH Non-Reactive (Nonreactive); Hepatitis B Surface Antigen Non-Reactive (Nonreactive); Hepatitis C Antibody Non-Reactive (Nonreactive)
[2020-01-05 01:57] LABS: Rapid Plasmin Reagin (RPR) NONREACTIVE (NONREACTIVE)
== END 2020-01-02 18:00 | disposition home or self-care (01) ==
LOC: LAB 15:49
PROVIDERS: Family Provider Student in an Organized Health Care Education/Training Program; PCP Student in an Organized Health Care Education/Training Program; Referring Provider Internal Medicine Cardiovascular Disease; Visit Provider Internal Medicine Cardiovascular Disease
DX: Z95.2 Presence of prosthetic heart valve (principal); Z79.01 Long term (current) use of anticoagulants; Z98.890 Other specified postprocedural states; Z11.3 Encounter for screening for infections with a predominantly sexual mode of transmission
CPT/HCPCS: 36415; 85610; 86592; 86703; 86803; 87340

== ENCOUNTER 2020-03-21 15:36 | Outpatient (RCR) | payer BC, SELFPAY ==
[2019-08-16 16:00] VITALS: BMI 26.2
[2020-03-21 16:12] LABS: Prothrombin Time (Protime)PT. 36.6 SECONDS (11.7-14.9)
[2020-03-21 16:30] LABS: International Normalized Ratio 3.7
== END 2020-03-26 18:00 | disposition home or self-care (01) ==
LOC: LAB 15:36
PROVIDERS: Family Provider Student in an Organized Health Care Education/Training Program; PCP Student in an Organized Health Care Education/Training Program; Referring Provider Internal Medicine Cardiovascular Disease; Visit Provider Internal Medicine Cardiovascular Disease
DX: Z95.2 Presence of prosthetic heart valve (principal); Z79.01 Long term (current) use of anticoagulants; Z98.890 Other specified postprocedural states
CPT/HCPCS: 36415; 85610

== ENCOUNTER 2020-04-18 14:26 | Outpatient (RCR) | payer BC, SELFPAY ==
[2019-08-16 16:00] VITALS: BMI 26.2
[2020-04-05 18:00] LABS: Prothrombin Time (Protime)PT. 37.1 SECONDS (11.7-14.9)
[2020-04-05 18:23] LABS: International Normalized Ratio 3.8
[2020-04-18 14:58] LABS: International Normalized Ratio 2.7; Prothrombin Time (Protime)PT. 27.8 SECONDS (11.7-14.9)
== END 2020-04-18 18:00 | disposition home or self-care (01) ==
LOC: LAB 14:26
PROVIDERS: Family Provider Student in an Organized Health Care Education/Training Program; PCP Student in an Organized Health Care Education/Training Program; Referring Provider Internal Medicine Cardiovascular Disease; Visit Provider Internal Medicine Cardiovascular Disease
DX: Z95.2 Presence of prosthetic heart valve (principal); Z79.01 Long term (current) use of anticoagulants; Z98.890 Other specified postprocedural states
CPT/HCPCS: 36415; 85610

== ENCOUNTER 2020-05-02 15:45 | Outpatient (RCR) | payer BC, SELFPAY ==
[2019-08-16 16:00] VITALS: BMI 26.2
[2020-05-02 16:16] LABS: International Normalized Ratio 2.7; Prothrombin Time (Protime)PT. 28.3 SECONDS (11.7-14.9)
== END 2020-05-02 18:00 | disposition home or self-care (01) ==
LOC: LAB 15:45
PROVIDERS: Family Provider Student in an Organized Health Care Education/Training Program; PCP Student in an Organized Health Care Education/Training Program; Referring Provider Internal Medicine Cardiovascular Disease; Visit Provider Internal Medicine Cardiovascular Disease
DX: Z95.2 Presence of prosthetic heart valve (principal); Z79.01 Long term (current) use of anticoagulants; Z98.890 Other specified postprocedural states
CPT/HCPCS: 36415; 85610

== ENCOUNTER 2020-06-04 14:54 | Outpatient (RCR) | payer BC, SELFPAY ==
[2019-08-16 16:00] VITALS: BMI 26.2
[2020-06-04 15:49] LABS: Prothrombin Time (Protime)PT. 35.6 SECONDS (11.7-14.9)
[2020-06-04 16:24] LABS: International Normalized Ratio 3.6
== END 2020-06-04 18:00 | disposition home or self-care (01) ==
LOC: LAB 14:54
PROVIDERS: Family Provider Student in an Organized Health Care Education/Training Program; PCP Student in an Organized Health Care Education/Training Program; Referring Provider Internal Medicine Cardiovascular Disease; Visit Provider Internal Medicine Cardiovascular Disease
DX: Z98.890 Other specified postprocedural states (principal); Z95.2 Presence of prosthetic heart valve; Z79.01 Long term (current) use of anticoagulants
CPT/HCPCS: 36415; 85610

== ENCOUNTER 2020-06-26 14:52 | Outpatient (RCR) | payer BC, SELFPAY ==
[2019-08-16 16:00] VITALS: BMI 26.2
[2020-06-26 16:13] LABS: International Normalized Ratio 2.6; Prothrombin Time (Protime)PT. 27.5 SECONDS (11.7-14.9)
== END 2020-06-26 18:00 | disposition home or self-care (01) ==
LOC: LAB 14:52
PROVIDERS: Family Provider Student in an Organized Health Care Education/Training Program; PCP Student in an Organized Health Care Education/Training Program; Referring Provider Internal Medicine Cardiovascular Disease; Visit Provider Internal Medicine Cardiovascular Disease
DX: Z98.890 Other specified postprocedural states (principal); Z95.2 Presence of prosthetic heart valve; Z79.01 Long term (current) use of anticoagulants
CPT/HCPCS: 36415; 85610

== ENCOUNTER 2020-08-16 15:37 | Outpatient (RCR) | payer BC, SELFPAY ==
[2019-08-16 16:00] VITALS: BMI 26.2
[2020-08-16 17:21] LABS: Prothrombin Time (Protime)PT. 30.4 SECONDS (11.7-14.9)
== END 2020-08-16 18:00 | disposition home or self-care (01) ==
LOC: LAB 15:37
PROVIDERS: Family Provider Student in an Organized Health Care Education/Training Program; PCP Student in an Organized Health Care Education/Training Program; Referring Provider Internal Medicine Cardiovascular Disease; Visit Provider Internal Medicine Cardiovascular Disease
DX: Z98.890 Other specified postprocedural states (principal); Z95.2 Presence of prosthetic heart valve; Z79.01 Long term (current) use of anticoagulants
CPT/HCPCS: 36415; 85610

== ENCOUNTER 2020-10-02 14:49 | Outpatient (RCR) | payer BC, SELFPAY ==
[2020-08-16 16:16] VITALS: BMI 26.6
[2020-10-02 15:53] LABS: International Normalized Ratio 3.2; Prothrombin Time (Protime)PT. 32.8 SECONDS (11.7-14.9)
== END 2020-10-02 18:00 | disposition home or self-care (01) ==
LOC: LAB 14:49
PROVIDERS: Family Provider Student in an Organized Health Care Education/Training Program; PCP Student in an Organized Health Care Education/Training Program; Referring Provider Internal Medicine Cardiovascular Disease; Visit Provider Internal Medicine Cardiovascular Disease
DX: Z98.890 Other specified postprocedural states (principal); Z95.2 Presence of prosthetic heart valve; Z79.01 Long term (current) use of anticoagulants
CPT/HCPCS: 36415; 85610

== ENCOUNTER 2021-01-21 15:20 | Outpatient (RCR) | payer BC, SELFPAY ==
[2020-08-16 16:16] VITALS: BMI 26.6
[2021-01-19 11:41] LABS: HIV - WCH Non-Reactive (Nonreactive); Hepatitis B Surface Antigen Non-Reactive (Nonreactive); Syphilis Antibodies Non-reactive
[2021-01-21 16:21] LABS: International Normalized Ratio 2.9; Prothrombin Time (Protime)PT. 29.6 SECONDS (11.7-14.9)
== END 2021-01-21 18:00 | disposition home or self-care (01) ==
LOC: LAB 15:20
PROVIDERS: Family Provider Student in an Organized Health Care Education/Training Program; PCP Student in an Organized Health Care Education/Training Program; Referring Provider Internal Medicine Cardiovascular Disease; Visit Provider Internal Medicine Cardiovascular Disease
DX: Z95.2 Presence of prosthetic heart valve (principal); Z98.890 Other specified postprocedural states; Z79.01 Long term (current) use of anticoagulants
CPT/HCPCS: 36415; 85610; 86703; 86780; 87340

== ENCOUNTER 2021-04-09 14:53 | Outpatient (RCR) | payer BC, SELFPAY ==
[2020-08-16 16:16] VITALS: BMI 26.6
[2021-04-09 16:46] LABS: International Normalized Ratio 2.7; Prothrombin Time (Protime)PT. 28.1 SECONDS (11.7-14.9)
== END 2021-04-09 18:00 | disposition home or self-care (01) ==
LOC: LAB 14:53
PROVIDERS: Family Provider Student in an Organized Health Care Education/Training Program; PCP Student in an Organized Health Care Education/Training Program; Referring Provider Internal Medicine Cardiovascular Disease; Visit Provider Internal Medicine Cardiovascular Disease
DX: Z98.890 Other specified postprocedural states (principal); Z95.2 Presence of prosthetic heart valve; Z79.01 Long term (current) use of anticoagulants
CPT/HCPCS: 36415; 85610

== ENCOUNTER 2021-06-04 14:48 | Outpatient (RCR) | payer BC, SELFPAY ==
[2021-04-25 21:18] VITALS: BMI 26.6
[2021-06-04 17:04] LABS: International Normalized Ratio 2.9; Prothrombin Time (Protime)PT. 29.7 SECONDS (11.7-14.9)
== END 2021-06-25 18:00 | disposition home or self-care (01) ==
LOC: LAB 14:48
PROVIDERS: Family Provider Student in an Organized Health Care Education/Training Program; PCP Student in an Organized Health Care Education/Training Program; Referring Provider Internal Medicine Cardiovascular Disease; Visit Provider Internal Medicine Cardiovascular Disease
DX: Z98.890 Other specified postprocedural states (principal); Z95.2 Presence of prosthetic heart valve; Z79.01 Long term (current) use of anticoagulants
CPT/HCPCS: 36415; 85610

== ENCOUNTER 2021-08-08 15:15 | Outpatient (RCR) | payer BC, SELFPAY ==
[2021-06-26 03:26] VITALS: BMI 26.6
[2021-08-08 16:21] LABS: International Normalized Ratio 2.9; Prothrombin Time (Protime)PT. 29.1 SECONDS (11.7-14.9)
== END 2021-08-26 18:00 | disposition home or self-care (01) ==
LOC: LAB 15:15
PROVIDERS: Physician Assistant Medical; Family Provider Student in an Organized Health Care Education/Training Program; PCP Student in an Organized Health Care Education/Training Program; Referring Provider Internal Medicine Cardiovascular Disease; Visit Provider Internal Medicine Cardiovascular Disease
DX: Z11.3 Encounter for screening for infections with a predominantly sexual mode of transmission (principal)
CPT/HCPCS: 36415; 85610

== ENCOUNTER 2021-08-19 13:46 | Outpatient (CLI) | payer BC, SELFPAY ==
--- NOTE | 2021-08-19 14:10 | ECHOD_ITS ---
Reason For Study: valvle replacement Procedure This was a 2D Doppler, Color Flow transthoracic echocardiogram. Exam performed in department. Left Ventricle Normal LV size. Left ventricular systolic function is normal. The estimated ejection fraction is 55 %. Post operative septal motion. No evidence for diastolic dysfunction. No regional wall motion abnormalities noted. Right Ventricle Normal RV size. Normal systolic function. Atria Normal left atrium. Normal right atrium. Mitral Valve Normal mitral valve. Tricuspid Valve Normal tricuspid valve. Mild tricuspid valve insufficiency. Pulmonary artery systolic pressure is 20 mmHg. Aortic Valve Peak aortic valve gradient 23 mmHg. Mean aortic valve gradient 13 mmHg. Stable appearing mechanical aortic valve apparatus. Pulmonic Valve Normal pulmonic valve. Great Vessels Normal aortic root. The pulmonary artery is normal size. Normal inferior vena cava. Pericardium/Pleural No pericardial effusion. MMode/2D Measurements & Calculations LVIDd: 5.2 cm IVSd: 1.1 cm LVOT diam: 2.1 cm LVIDs: 3.7 cm LVPWd: 1.2 cm LVOT area: 3.3 cm2 RVDd: 3.8 cm FS: 29.4 % Ao root diam: 3.5 cm LAV(MOD-sp4): 55.3 ml LA A4 area: 19.4 cm2 LA dimension(2D): 4.1 cm RA A4 area: 18.5 cm2 Time Measurements MV dec time: 0.22 sec Doppler Measurements & Calculations MV E max malik: 64.5 cm/sec Lat Peak E' Malik: 13.3 cm/sec Med Peak E' Malik: 9.1 cm/sec MV A max malik: 38.9 cm/sec E/E' lat: 4.8 E/E' med: 7.1 MV E/A: 1.7 Ao V2 max: 243.6 cm/sec LV V1 max: 98.3 cm/sec SV(LVOT): 76.1 ml Ao max P.7 mmHg LV V1 max P.9 mmHg Ao V2 mean: 167.2 cm/sec LV V1 mean P.2 mmHg Ao mean P.5 mmHg LV V1 mean: 70.7 cm/sec Ao V2 VTI: 50.1 cm LV V1 VTI: 22.9 cm VICKY(I,D): 1.5 cm2 VICKY(V,D): 1.3 cm2 PA V2 max: 90.8 cm/sec TR max malik: 201.7 cm/sec PI dec slope: 149.1 cm/sec2 TR max P.3 mmHg ECHO/Echo Complete Interpretation Summary Normal LV size. Left ventricular systolic function is normal. The estimated ejection fraction is 55 %. No evidence for diastolic dysfunction. Pulmonary artery systolic pressure is 20 mmHg. Stable appearing mechanical aortic valve apparatus. Mean aortic valve gradient 13 mmHg. Compared to the previous the above is essentially unchanged Ordering Physician: Garima Michael Referring Physician: Chano Valentine Performed By: Caitlin Red RDCS, RVT
== END 2021-08-19 23:59 | disposition short-term general hospital (02) ==
PROVIDERS: PCP Student in an Organized Health Care Education/Training Program; Visit Provider Physician Assistant Medical
DX: Z98.890 Other specified postprocedural states (principal); Z95.2 Presence of prosthetic heart valve
CPT/HCPCS: 93306

== ENCOUNTER 2021-10-16 14:40 | Outpatient (RCR) | payer BC, SELFPAY ==
[2021-08-27 01:17] VITALS: BMI 26.6
[2021-10-16 15:37] LABS: International Normalized Ratio 3.4; Prothrombin Time (Protime)PT. 33.6 SECONDS (11.7-14.9)
== END 2021-10-24 18:00 | disposition home or self-care (01) ==
LOC: LAB 14:40
PROVIDERS: Family Provider Student in an Organized Health Care Education/Training Program; PCP Student in an Organized Health Care Education/Training Program; Referring Provider Internal Medicine Cardiovascular Disease; Visit Provider Internal Medicine Cardiovascular Disease
DX: Z95.2 Presence of prosthetic heart valve; Z98.890 Other specified postprocedural states; Z79.01 Long term (current) use of anticoagulants
CPT/HCPCS: 36415; 85610

== ENCOUNTER 2021-12-31 15:22 | Outpatient (RCR) | payer BC, SELFPAY ==
[2021-10-25 02:33] VITALS: BMI 26.6
[2021-12-31 16:30] LABS: Prothrombin Time (Protime)PT. 30.6 SECONDS (11.7-14.9)
== END 2021-12-31 23:59 | disposition home or self-care (01) ==
LOC: LAB 15:22
PROVIDERS: Family Provider Student in an Organized Health Care Education/Training Program; PCP Student in an Organized Health Care Education/Training Program; Referring Provider Internal Medicine Cardiovascular Disease; Visit Provider Internal Medicine Cardiovascular Disease
DX: Z98.890 Other specified postprocedural states; Z95.2 Presence of prosthetic heart valve; Z79.01 Long term (current) use of anticoagulants
CPT/HCPCS: 36415; 85610

== ENCOUNTER 2022-02-26 15:15 | Outpatient (RCR) | payer BC, SELFPAY ==
[2022-01-24 07:06] VITALS: BMI 26.6
[2022-02-26 17:18] LABS: International Normalized Ratio 3.3; Prothrombin Time (Protime)PT. 33.1 SECONDS (11.7-14.9)
== END 2022-02-26 18:00 | disposition home or self-care (01) ==
LOC: LAB 15:15
PROVIDERS: Family Provider Student in an Organized Health Care Education/Training Program; PCP Student in an Organized Health Care Education/Training Program; Referring Provider Internal Medicine Cardiovascular Disease; Visit Provider Internal Medicine Cardiovascular Disease
DX: Z98.890 Other specified postprocedural states (principal); Z95.2 Presence of prosthetic heart valve; Z79.01 Long term (current) use of anticoagulants
CPT/HCPCS: 36415; 85610

== ENCOUNTER 2022-04-21 15:06 | Outpatient (RCR) | payer BC, SELFPAY ==
[2022-03-26 23:08] VITALS: BMI 26.6
[2022-04-21 16:36] LABS: International Normalized Ratio 3.6; Prothrombin Time (Protime)PT. 35.4 SECONDS (11.7-14.9)
== END 2022-04-21 18:00 | disposition home or self-care (01) ==
LOC: LAB 15:06
PROVIDERS: Family Provider Student in an Organized Health Care Education/Training Program; PCP Student in an Organized Health Care Education/Training Program; Referring Provider Internal Medicine Cardiovascular Disease; Visit Provider Internal Medicine Cardiovascular Disease
DX: Z79.01 Long term (current) use of anticoagulants (principal); Z95.2 Presence of prosthetic heart valve
CPT/HCPCS: 36415; 85610

== ENCOUNTER 2022-05-08 14:52 | Outpatient (RCR) | payer BC, SELFPAY ==
[2022-04-25 21:39] VITALS: BMI 26.6
[2022-05-08 15:53] LABS: International Normalized Ratio 2.2; Prothrombin Time (Protime)PT. 23.9 SECONDS (11.7-14.9)
== END 2022-05-08 18:00 | disposition home or self-care (01) ==
LOC: LAB 14:52
PROVIDERS: Family Provider Student in an Organized Health Care Education/Training Program; PCP Student in an Organized Health Care Education/Training Program; Referring Provider Internal Medicine Cardiovascular Disease; Visit Provider Internal Medicine Cardiovascular Disease
DX: Z79.01 Long term (current) use of anticoagulants (principal); Z95.2 Presence of prosthetic heart valve
CPT/HCPCS: 36415; 85610

== ENCOUNTER 2022-05-30 13:28 | Outpatient (RCR) | payer BC, SELFPAY ==
[2022-05-27 10:03] VITALS: BMI 26.6
[2022-05-30 14:16] LABS: International Normalized Ratio 3.3; Prothrombin Time (Protime)PT. 33.5 SECONDS (11.7-14.9)
== END 2022-06-25 18:00 | disposition home or self-care (01) ==
LOC: LAB 13:28
PROVIDERS: Family Provider Student in an Organized Health Care Education/Training Program; PCP Student in an Organized Health Care Education/Training Program; Referring Provider Internal Medicine Cardiovascular Disease; Visit Provider Internal Medicine Cardiovascular Disease
DX: Z79.01 Long term (current) use of anticoagulants (principal); Z95.2 Presence of prosthetic heart valve; Z98.890 Other specified postprocedural states
CPT/HCPCS: 36415; 85610

== ENCOUNTER 2022-08-06 10:48 | Outpatient (RCR) | payer BC, SELFPAY ==
[2022-06-26 00:27] VITALS: BMI 26.6
[2022-08-06 11:34] LABS: Prothrombin Time (Protime)PT. 30.4 SECONDS (11.7-14.9)
== END 2022-08-06 18:00 | disposition home or self-care (01) ==
LOC: LAB 10:48
PROVIDERS: Family Provider Student in an Organized Health Care Education/Training Program; PCP Student in an Organized Health Care Education/Training Program; Referring Provider Internal Medicine Cardiovascular Disease; Visit Provider Internal Medicine Cardiovascular Disease
DX: Z79.01 Long term (current) use of anticoagulants (principal); Z95.2 Presence of prosthetic heart valve
CPT/HCPCS: 36415; 85610

== ENCOUNTER 2022-11-10 15:01 | Outpatient (RCR) | payer BC, SELFPAY ==
[2022-08-27 08:03] VITALS: BMI 26.6
[2022-11-10 16:12] LABS: International Normalized Ratio 3.6; Prothrombin Time (Protime)PT. 35.5 SECONDS (11.7-14.9)
== END 2022-11-23 01:24 | disposition home or self-care (01) ==
LOC: LAB 15:01
PROVIDERS: Family Provider Student in an Organized Health Care Education/Training Program; PCP Student in an Organized Health Care Education/Training Program; Referring Provider Internal Medicine Cardiovascular Disease; Visit Provider Internal Medicine Cardiovascular Disease
DX: Z79.01 Long term (current) use of anticoagulants (principal); Z95.2 Presence of prosthetic heart valve; Z98.890 Other specified postprocedural states
CPT/HCPCS: 36415; 85610

== ENCOUNTER 2023-01-21 14:58 | Outpatient (RCR) | payer BC, SELFPAY ==
[2022-11-23 01:24] VITALS: BMI 26.6
[2023-01-21 16:17] LABS: International Normalized Ratio 2.8; Prothrombin Time (Protime)PT. 30.2 SECONDS (11.7-14.9)
== END 2023-01-21 18:00 | disposition home or self-care (01) ==
LOC: LAB 14:58
PROVIDERS: Family Provider Student in an Organized Health Care Education/Training Program; PCP Student in an Organized Health Care Education/Training Program; Referring Provider Internal Medicine Cardiovascular Disease; Visit Provider Internal Medicine Cardiovascular Disease
DX: Z79.01 Long term (current) use of anticoagulants (principal); Z95.2 Presence of prosthetic heart valve; Z98.890 Other specified postprocedural states
CPT/HCPCS: 36415; 85610

== ENCOUNTER 2023-04-08 15:05 | Outpatient (RCR) | payer BC, SELFPAY ==
[2023-01-23 22:24] VITALS: BMI 26.6
[2023-04-08 16:18] LABS: International Normalized Ratio 2.7; Prothrombin Time (Protime)PT. 28.7 SECONDS (11.7-14.9)
== END 2023-04-08 18:00 | disposition home or self-care (01) ==
LOC: LAB 15:05
PROVIDERS: Family Provider Student in an Organized Health Care Education/Training Program; PCP Student in an Organized Health Care Education/Training Program; Referring Provider Internal Medicine Cardiovascular Disease; Visit Provider Internal Medicine Cardiovascular Disease
DX: Z79.01 Long term (current) use of anticoagulants (principal); Z95.2 Presence of prosthetic heart valve; Z98.890 Other specified postprocedural states
CPT/HCPCS: 36415; 85610

== ENCOUNTER 2023-07-01 14:49 | Outpatient (RCR) | payer BC, SELFPAY ==
[2023-04-26 02:50] VITALS: BMI 26.6
[2023-07-01 15:20] LABS: International Normalized Ratio 2.8; Prothrombin Time (Protime)PT. 29.6 SECONDS (11.7-14.9)
== END 2023-07-26 18:00 | disposition home or self-care (01) ==
LOC: LAB 14:49
PROVIDERS: Family Provider Student in an Organized Health Care Education/Training Program; PCP Student in an Organized Health Care Education/Training Program; Referring Provider Internal Medicine Cardiovascular Disease; Visit Provider Internal Medicine Cardiovascular Disease
DX: Z79.01 Long term (current) use of anticoagulants (principal); Z95.2 Presence of prosthetic heart valve; Z98.890 Other specified postprocedural states; Z11.3 Encounter for screening for infections with a predominantly sexual mode of transmission
CPT/HCPCS: 36415; 85610

== ENCOUNTER 2023-08-26 16:08 | Outpatient (RCR) | payer BC, SELFPAY ==
[2023-07-26 20:56] VITALS: BMI 26.6
[2023-08-26 16:35] LABS: International Normalized Ratio 2.8
== END 2023-08-26 18:00 | disposition home or self-care (01) ==
LOC: LAB 16:08
PROVIDERS: Family Provider Student in an Organized Health Care Education/Training Program; PCP Student in an Organized Health Care Education/Training Program; Referring Provider Internal Medicine Cardiovascular Disease; Visit Provider Internal Medicine Cardiovascular Disease
DX: Z79.01 Long term (current) use of anticoagulants (principal); Z95.2 Presence of prosthetic heart valve; Z98.890 Other specified postprocedural states; Z11.3 Encounter for screening for infections with a predominantly sexual mode of transmission
CPT/HCPCS: 36415; 85610

== ENCOUNTER 2023-12-17 14:50 | Outpatient (RCR) | payer BC, SELFPAY ==
[2023-08-26 23:10] VITALS: BMI 26.6
[2023-12-17 16:46] LABS: International Normalized Ratio 2.4; Prothrombin Time (Protime)PT. 25.9 SECONDS (11.7-14.9)
== END 2023-12-22 18:00 | disposition home or self-care (01) ==
LOC: LAB 14:50
PROVIDERS: Family Provider Student in an Organized Health Care Education/Training Program; PCP Student in an Organized Health Care Education/Training Program; Referring Provider Internal Medicine Cardiovascular Disease; Visit Provider Internal Medicine Cardiovascular Disease
DX: Z79.01 Long term (current) use of anticoagulants (principal); Z95.2 Presence of prosthetic heart valve; Z98.890 Other specified postprocedural states
CPT/HCPCS: 36415; 85610

== ENCOUNTER 2023-12-30 15:00 | Outpatient (RCR) | payer BC, SELFPAY ==
[2023-12-28 09:18] VITALS: BMI 26.6
[2023-12-30 16:37] LABS: International Normalized Ratio 2.6; Prothrombin Time (Protime)PT. 27.8 SECONDS (11.7-14.9)
== END 2023-12-30 18:00 | disposition home or self-care (01) ==
LOC: LAB 15:00
PROVIDERS: Family Provider Student in an Organized Health Care Education/Training Program; PCP Student in an Organized Health Care Education/Training Program; Referring Provider Internal Medicine Cardiovascular Disease; Visit Provider Internal Medicine Cardiovascular Disease
DX: Z79.01 Long term (current) use of anticoagulants (principal); Z95.2 Presence of prosthetic heart valve; Z98.890 Other specified postprocedural states; Z11.3 Encounter for screening for infections with a predominantly sexual mode of transmission
CPT/HCPCS: 36415; 85610

== ENCOUNTER 2024-01-17 12:29 | Emergency (ER) | payer BC, SELFPAY ==
[2024-01-17 12:30] VITALS: BP 147/87; PULSE 70; RESP 16; TEMP 36.8; O2SAT 97; BMI 25.8
--- NOTE | 2024-01-17 12:40 | RAD_ITS ---
STUDY: X-RAY - LEFT HAND, ATTENTION INDEX FINGER REASON FOR EXAM: Male, 43 years old. Laceration TECHNIQUE: 3 view(s) of the finger were obtained. COMPARISON: None. FINDINGS: There is no evidence of fracture or dislocation. There is a 2 mm radiodense foreign body in the soft tissues of the distal aspect of the left index finger. There is associated soft tissue swelling. There are no radiodense foreign bodies. RAD/Finger(s) Min 2 Views IMPRESSION: No fracture or dislocation in the left index finger. 2 mm radiodense foreign body in the soft tissues of the distal aspect of the left index finger with associated soft tissue swelling. Electronically Signed: Magno Sinha MD at 13:06 EDT ,
--- NOTE | 2024-01-17 14:52 | EDS_ITS ---
HPI History of Present Illness Chief Complaint: Laceration Detail of Chief Complaint: Left index finger laceration Informant: patient Onset/Context/Timing Onset: Today Narrative Narrative: Patient present secondary to left index finger laceration. He was using a chainsaw outside doing [employer] work when he lacerated his left index finger. Patient is on Coumadin due to a history of aortic valve replacement. He is right-hand dominant. He is unsure of his last tetanus update. [facility] Medical History Unicuspid aortic valve Thoracic aortic aneurysm (TAA) Nonrheumatic aortic (valve) stenosis Nonrheumatic mitral (valve) insufficiency Hyperlipidemia History of pericarditis History of bicuspid aortic valve Home Medications ?Medication ?Instructions ?Recorded ?Last Taken ?Type cholecalciferol (vitamin D3) 25 25 mcg PO DAILY 08/16/20 Unknown History mcg (1,000 unit) capsule warfarin 4 mg tablet See Rx Instructions .Route 02/06/23 Unknown Rx .COMPLEX #62 tabs Allergy/AdvReac Type Severity Reaction Status Date / Time fentanyl Allergy Itching Verified 09/29/23 14:56 Family History Mother Hypertension Surgical History History of left heart catheterization (05/30/13) H/O thoracic aortic aneurysm repair (05/30/13) H/O mechanical aortic valve replacement (05/30/13) Social History Smoking Status: Former smoker ROS ROS ED Constitutional Constitutional ED: Denies chills or fever(s) Eyes Eyes: Denies discharge from eye(s) ENT ENT ED: Denies discharge from eye(s) Cardiovascular Cardiovascular: Denies chest pain Respiratory/Chest Respiratory/Chest: Denies cough or dyspnea Gastrointestinal Gastrointestinal: Denies abdominal pain, nausea or vomiting Musculoskeletal Musculoskeletal: Reports extremity pain; Denies back pain Integumentary Reports other Details: Left index finger laceration ; Denies Abrasions or rash Neurologic Neurologic: Denies headache(s), paresthesias or weakness Psychiatric Psychiatric: Denies anxiety or depression Allergic/Immunologic Allergic/Immunologic ED: Denies lip swelling or urticaria EXAM Physical Exam Const Vital Signs: 01/17/24 12:30 Temperature 98.2 F Temperature Source Temporal Pulse Rate 70 Respiratory Rate 16 Blood Pressure 147/87 H Blood Pressure Mean 107 Pulse Ox 97 Oxygen Delivery Method Room Air Positive well nourished and well developed General Appearance ED: well developed HEENT Reports moist mucous membranes Eyes EOMs intact bilaterally Chest Wall inspection of chest normal and palpation of chest normal Resp normal respiratory effort and clear to auscultation bilaterally Cardio regular rate and regular rhythm Extremity Extremity Narrative: 2 cm linear laceration noted over the middle phalanx of the left index finger along the extensor surface. Good range of motion. Good sensation and cap refill distally. Neuro oriented x3 and moves all extremities MDM MDM MDM Narrative Medical decision making narrative: Left hand x-rays were obtained by nursing protocol. On my interpretation no evidence of acute bony injury. Patient does have a small metallic foreign body noted to the distal phalanx. Patient has no open wound to this area and I do believe this is likely from an old injury. Tetanus update provided. Left index finger anesthetized with a total of 5 cc of 1% lidocaine. Wound is thoroughly cleansed and irrigated. 5 simple arid sutures of 5-0 nylon are placed with good approximation. Patient has good bleeding control. Dressing is applied. Patient is to have sutures removed in 10 days. Return instructions provided. Radiography Diagnostic Testing: Clinical Impression(s) from Imaging Studies Finger X-Ray 01/17/24 12:40 IMPRESSION: No fracture or dislocation in the left index finger. 2 mm radiodense foreign body in the soft tissues of the distal aspect of the left index finger with associated soft tissue swelling. Electronically Signed: Magno Sinha MD at 13:06 EDT , Discharge Plan Triage Chief Complaint: Laceration ED Provider: Pippa Schmidt Dx/Rx/DC Orders Clinical Impression: Laceration of finger Instructions: ED Laceration, Hand: All Closures Prescriptions: No Action cholecalciferol (vitamin D3) 25 mcg (1,000 unit) capsule 25 mcg PO DAILY warfarin 4 mg tablet See Rx Instructions .ROUTE .COMPLEX Qty: 62 12RF Protocol: Dose Management Condition: Thursday Dose/Route: 10 mg Instruction: 2.5 x 4 mg tablets Condition: Thursday Dose/Route: 8 mg Instruction: 2 x 4 mg tablets Condition: Thursday Dose/Route: 8 mg Instruction: 2 x 4 mg tablets Condition: Thursday Dose/Route: 8 mg Instruction: 2 x 4 mg tablets Condition: Dose/Route: 8 mg Instruction: 2 x 4 mg tablets Condition: Thursday Dose/Route: 10 mg Instruction: 2.5 x 4 mg tablets Condition: Thursday Dose/Route: 10 mg Instruction: 2.5 x 4 mg tablets Protocol Text: Adjustment Start Date: Thursday12/30/23 INR Value: 2.6 INR Date: 12/30/23 Recheck Date: 01/13/24 Dose Instruction: FOR PT ONLY WANTS 4MG TABLETS TAKE 2.5 TABLETS (10 MG)ON SAT, SUN, MON AND 2 TABLET DAILY (8 MG) ALL OTHER DAYS OR DIRECTED. Rx Instructions: FOR PT ONLY WANTS 4MG TABLETS TAKE 2.5 TABLETS (10 MG)ON SAT, SUN, MON AND 2 TABLET DAILY (8 MG) ALL OTHER DAYS OR DIRECTED. Primary Care Provider: Chano Valentine Referrals: Chano Valentine DO [Primary Care Provider] - 10 Day for suture removal Print Language: Turkish Disposition Disposition: Home, Self Care Discharge Date/Time: 01/17/24 15:07
[2024-01-17] MEDS: Lidocaine 1% (20 ml mdv) 20 ML Vial INFILT (14:56)
[2024-01-17] MEDS: Diphth,Pertuss(Acell),Tet Vac 0.5 ML Vial IM (14:56)
== END 2024-01-17 15:07 | disposition home or self-care (01) ==
PROVIDERS: Emergency Provider Emergency Medicine; PCP Student in an Organized Health Care Education/Training Program; Visit Provider Emergency Medicine
DX: S61.221A Laceration with foreign body of left index finger without damage to nail, initial encounter (principal); Z87.891 Personal history of nicotine dependence; W29.3XXA Contact with powered garden and outdoor hand tools and machinery, initial encounter; Y93.H2 Activity, gardening and landscaping; Y92.89 Other specified places as the place of occurrence of the external cause; Z95.2 Presence of prosthetic heart valve; Z79.01 Long term (current) use of anticoagulants; E78.5 Hyperlipidemia, unspecified; Z23 Encounter for immunization
CPT/HCPCS: 12001; 73140; 90471; 90715; 99283

== ENCOUNTER 2024-02-15 14:44 | Outpatient (RCR) | payer BC, SELFPAY ==
[2024-01-25 03:11] VITALS: BMI 26.6
[2024-02-15 15:50] LABS: International Normalized Ratio 3.3; Prothrombin Time (Protime)PT. 33.2 SECONDS (11.7-14.9)
== END 2024-02-24 18:00 | disposition home or self-care (01) ==
LOC: LAB 14:44
PROVIDERS: Family Provider Student in an Organized Health Care Education/Training Program; PCP Student in an Organized Health Care Education/Training Program; Referring Provider Internal Medicine Cardiovascular Disease; Visit Provider Internal Medicine Cardiovascular Disease
DX: Z79.01 Long term (current) use of anticoagulants (principal); Z95.2 Presence of prosthetic heart valve; Z98.890 Other specified postprocedural states
CPT/HCPCS: 36415; 85610

== ENCOUNTER 2024-03-14 14:48 | Outpatient (RCR) | payer BC, SELFPAY ==
[2024-02-24 22:04] VITALS: BMI 26.6
[2024-03-14 15:55] LABS: International Normalized Ratio 3.7; Prothrombin Time (Protime)PT. 36.1 SECONDS (11.7-14.9)
== END 2024-03-14 18:00 | disposition home or self-care (01) ==
LOC: LAB 14:48
PROVIDERS: Family Provider Student in an Organized Health Care Education/Training Program; PCP Student in an Organized Health Care Education/Training Program; Referring Provider Internal Medicine Cardiovascular Disease; Visit Provider Internal Medicine Cardiovascular Disease
DX: Z11.3 Encounter for screening for infections with a predominantly sexual mode of transmission
CPT/HCPCS: 36415; 85610

== ENCOUNTER 2024-05-25 14:58 | Outpatient (RCR) | payer BC, SELFPAY ==
[2024-03-27 04:11] VITALS: BMI 26.6
[2024-05-11 15:48] LABS: International Normalized Ratio 2.4; Prothrombin Time (Protime)PT. 25.9 SECONDS (11.7-14.9)
[2024-05-25 15:56] LABS: International Normalized Ratio 4.4; Prothrombin Time (Protime)PT. 41.8 SECONDS (11.7-14.9)
== END 2024-05-25 18:00 | disposition home or self-care (01) ==
LOC: LAB 14:58
PROVIDERS: Family Provider Student in an Organized Health Care Education/Training Program; PCP Student in an Organized Health Care Education/Training Program; Referring Provider Internal Medicine Cardiovascular Disease; Visit Provider Internal Medicine Cardiovascular Disease
DX: Z79.01 Long term (current) use of anticoagulants (principal); Z95.2 Presence of prosthetic heart valve; Z98.890 Other specified postprocedural states; Z11.3 Encounter for screening for infections with a predominantly sexual mode of transmission
CPT/HCPCS: 36415; 85610

== ENCOUNTER 2024-06-08 14:48 | Outpatient (RCR) | payer BC, SELFPAY ==
[2024-05-26 20:53] VITALS: BMI 26.6
[2024-06-08 16:38] LABS: Prothrombin Time (Protime)PT. 31.1 SECONDS (11.7-14.9)
== END 2024-06-25 18:00 | disposition home or self-care (01) ==
LOC: LAB 14:48
PROVIDERS: Family Provider Student in an Organized Health Care Education/Training Program; PCP Student in an Organized Health Care Education/Training Program; Referring Provider Internal Medicine Cardiovascular Disease; Visit Provider Internal Medicine Cardiovascular Disease
DX: Z79.01 Long term (current) use of anticoagulants (principal); Z95.2 Presence of prosthetic heart valve; Z98.890 Other specified postprocedural states

== ENCOUNTER 2024-07-26 14:45 | Outpatient (RCR) | payer BC, SELFPAY ==
[2024-06-25 23:43] VITALS: BMI 26.6
[2024-06-29 16:07] LABS: International Normalized Ratio 3.3; Prothrombin Time (Protime)PT. 33.3 SECONDS (11.7-14.9)
[2024-07-26 15:54] LABS: Prothrombin Time (Protime)PT. 31.7 SECONDS (11.7-14.9)
== END 2024-07-26 18:00 | disposition home or self-care (01) ==
LOC: LAB 14:45
PROVIDERS: Family Provider Student in an Organized Health Care Education/Training Program; PCP Student in an Organized Health Care Education/Training Program; Referring Provider Internal Medicine Cardiovascular Disease; Visit Provider Internal Medicine Cardiovascular Disease
DX: Z79.01 Long term (current) use of anticoagulants (principal); Z95.2 Presence of prosthetic heart valve; Z98.890 Other specified postprocedural states; Z11.3 Encounter for screening for infections with a predominantly sexual mode of transmission
CPT/HCPCS: 36415; 85610

== ENCOUNTER 2024-08-05 15:01 | Outpatient (RCR) | payer BC, SELFPAY ==
[2024-07-27 04:27] VITALS: BMI 26.6
[2024-08-05 15:41] LABS: International Normalized Ratio 3.1; Prothrombin Time (Protime)PT. 32.9 SECONDS (11.7-14.9)
== END 2024-08-05 18:00 | disposition home or self-care (01) ==
LOC: LAB 15:01
PROVIDERS: Family Provider Student in an Organized Health Care Education/Training Program; PCP Student in an Organized Health Care Education/Training Program; Referring Provider Internal Medicine Cardiovascular Disease; Visit Provider Internal Medicine Cardiovascular Disease
DX: Z79.01 Long term (current) use of anticoagulants (principal); Z95.2 Presence of prosthetic heart valve; Z98.890 Other specified postprocedural states; Z11.3 Encounter for screening for infections with a predominantly sexual mode of transmission
CPT/HCPCS: 36415; 85610

== ENCOUNTER 2024-09-21 14:57 | Outpatient (RCR) | payer BC, SELFPAY ==
[2024-08-27 02:02] VITALS: BMI 26.6
[2024-09-19 16:07] LABS: International Normalized Ratio 3.6; Prothrombin Time (Protime)PT. 36.3 SECONDS (11.7-14.9)
[2024-09-21 15:29] LABS: International Normalized Ratio 2.2; Prothrombin Time (Protime)PT. 24.7 SECONDS (11.7-14.9)
== END 2024-09-23 18:00 | disposition home or self-care (01) ==
LOC: LAB 14:57
PROVIDERS: Family Provider Student in an Organized Health Care Education/Training Program; PCP Student in an Organized Health Care Education/Training Program; Referring Provider Internal Medicine Cardiovascular Disease; Visit Provider Internal Medicine Cardiovascular Disease
DX: Z79.01 Long term (current) use of anticoagulants (principal); Z95.2 Presence of prosthetic heart valve; Z98.890 Other specified postprocedural states; Z11.3 Encounter for screening for infections with a predominantly sexual mode of transmission
CPT/HCPCS: 36415; 85610

== ENCOUNTER 2024-10-27 13:55 | Outpatient (RCR) | payer BC, SELFPAY ==
[2024-09-24 04:53] VITALS: BMI 26.6
[2024-10-27 15:25] LABS: International Normalized Ratio 3.3; Prothrombin Time (Protime)PT. 34.4 SECONDS (11.7-14.9)
== END 2024-11-23 18:00 | disposition home or self-care (01) ==
LOC: LAB 13:55
PROVIDERS: Family Provider Student in an Organized Health Care Education/Training Program; PCP Student in an Organized Health Care Education/Training Program; Referring Provider Internal Medicine Cardiovascular Disease; Visit Provider Internal Medicine Cardiovascular Disease
DX: Z79.01 Long term (current) use of anticoagulants (principal); Z95.2 Presence of prosthetic heart valve; Z98.890 Other specified postprocedural states
CPT/HCPCS: 36415; 85610

== ENCOUNTER 2024-12-01 14:40 | Outpatient (RCR) | payer BC, SELFPAY ==
[2024-11-23 21:40] VITALS: BMI 26.6
[2024-12-01 16:50] LABS: International Normalized Ratio 2.6; Prothrombin Time (Protime)PT. 28.7 SECONDS (11.7-14.9)
== END 2024-12-01 18:00 | disposition home or self-care (01) ==
LOC: LAB 14:40
PROVIDERS: Family Provider Student in an Organized Health Care Education/Training Program; PCP Student in an Organized Health Care Education/Training Program; Referring Provider Internal Medicine Cardiovascular Disease; Visit Provider Internal Medicine Cardiovascular Disease
DX: Z79.01 Long term (current) use of anticoagulants (principal); Z95.2 Presence of prosthetic heart valve; Z98.890 Other specified postprocedural states; Z11.3 Encounter for screening for infections with a predominantly sexual mode of transmission
CPT/HCPCS: 36415; 85610

== ENCOUNTER → 2024-12-01 | Outpatient (CLI) | payer BC, SELFPAY ==
--- NOTE | 2024-12-01 13:49 | ECHOD_ITS ---
Reason For Study Reason For Study: VALVE REPLACEMENT EVAL Procedure This was a 2D Doppler, Color Flow transthoracic echocardiogram. Exam performed in department. Left Ventricle Normal LV size. Left ventricular systolic function is normal. The left ventricular ejection fraction is 60 %. No regional wall motion abnormalities noted. Right Ventricle Normal right ventricle. Normal systolic function. Atria Normal left atrium. Normal right atrium. Mitral Valve Normal mitral valve. Tricuspid Valve Normal tricuspid valve. Mild tricuspid valve insufficiency. Pulmonary artery systolic pressure is 28 mmHg. Aortic Valve Peak aortic valve gradient 23 mmHg. Mean aortic valve gradient 13 mmHg. Stable appearing mechanical aortic valve apparatus. Pulmonic Valve Normal pulmonic valve. Great Vessels Normal aortic root. The pulmonary artery is normal size. Inferior vena cava collapse with respiration. Pericardium/Pleural No pericardial effusion. MMode/2D Measurements & Calculations LVIDd: 5.7 cm IVSd: 1.1 cm LVOT diam: 2.1 cm LVIDs: 3.8 cm LVPWd: 1.1 cm LVOT area: 3.4 cm2 RVDd: 3.1 cm FS: 32.7 % Ao root diam: 3.6 cm LAV(MOD-bp): 56.0 ml LVAd ap4: 31.2 cm2 LAV(MOD-bp) Indexed: 27.3 ml/m2 LVLd ap4: 8.1 cm LAV(MOD-sp2): 55.9 ml EDV(MOD-sp4): 99.6 ml LAV(MOD-sp4): 52.0 ml EDV(sp4-el): 101.2 ml LVAs ap4: 18.7 cm2 LVLs ap4: 6.8 cm ESV(MOD-sp4): 43.3 ml ESV(sp4-el): 43.3 ml EF(MOD-sp4): 56.6 % EF(sp4-el): 57.2 % SV(MOD-sp4): 56.4 ml SV(sp4-el): 57.9 ml LA A4 area: 18.5 cm2 SI(MOD-sp4): 27.5 ml/m2 RA A4 area: 14.0 cm2 Time Measurements MV dec time: 0.21 sec Doppler Measurements & Calculations MV E max malik: 64.6 cm/sec Lat Peak E' Malik: 14.5 cm/sec Med Peak E' Malik: 10.8 cm/sec MV A max malik: 51.8 cm/sec E/E' lat: 4.4 E/E' med: 6.0 MV E/A: 1.2 MV V2 max: 69.0 cm/sec MV P1/2t max malik: 68.2 cm/sec Ao V2 max: 244.0 cm/sec MV max P.9 mmHg MV P1/2t: 63.7 msec Ao max P.0 mmHg MV V2 mean: 43.3 cm/sec Ao V2 mean: 169.3 cm/sec MV mean P.83 mmHg MV dec slope: 313.4 cm/sec2 Ao mean P.8 mmHg MV V2 VTI: 23.6 cm MVA(P1/2t): 3.5 cm2 Ao V2 VTI: 48.6 cm AV (velocity ratio): 0.50 MVA(VTI): 3.5 cm2 VICKY(I,D): 1.7 cm2 VICKY(V,D): 1.5 cm2 LV V1 max: 105.2 cm/sec SV(LVOT): 83.5 ml PA V2 max: 98.1 cm/sec LV V1 max P.4 mmHg PA V2 mean: 64.2 cm/sec LV V1 mean P.7 mmHg LV V1 mean: 77.9 cm/sec LV V1 VTI: 24.2 cm PI dec slope: 146.8 cm/sec2 TR max malik: 247.0 cm/sec TR max P.4 mmHg ECHO/Echo Complete Interpretation Summary Normal LV size. Left ventricular systolic function is normal. The left ventricular ejection fraction is 60 %. Pulmonary artery systolic pressure is 28 mmHg. Mean aortic valve gradient 13 mmHg. Stable appearing mechanical aortic valve apparatus. Compared to the previous the above is unchanged. Ordering Physician: Garima Michael Referring Physician: Chano Valentine Performed By: Caitlin Red RDCS, RVT
== END | disposition home or self-care (01) ==
LOC: CVS 13:48
PROVIDERS: PCP Student in an Organized Health Care Education/Training Program; Referring Provider Physician Assistant Medical; Visit Provider Physician Assistant Medical
DX: Z98.890 Other specified postprocedural states (principal); Z95.2 Presence of prosthetic heart valve
CPT/HCPCS: 93306

== ENCOUNTER 2025-02-01 14:56 | Outpatient (RCR) | payer BC, SELFPAY ==
[2024-12-24 22:15] VITALS: BMI 26.6
[2025-02-01 15:55] LABS: Prothrombin Time (Protime)PT. 31.8 SECONDS (11.7-14.9)
== END 2025-02-23 21:12 | disposition home or self-care (01) ==
LOC: LAB 14:56
PROVIDERS: Family Provider Student in an Organized Health Care Education/Training Program; PCP Student in an Organized Health Care Education/Training Program; Referring Provider Internal Medicine Cardiovascular Disease; Visit Provider Internal Medicine Cardiovascular Disease
DX: Z79.01 Long term (current) use of anticoagulants (principal); Z95.2 Presence of prosthetic heart valve; Z98.890 Other specified postprocedural states; Z11.3 Encounter for screening for infections with a predominantly sexual mode of transmission
CPT/HCPCS: 36415; 85610

== ENCOUNTER 2025-03-28 14:58 | Outpatient (RCR) | payer BC, SELFPAY ==
[2025-03-28 17:41] LABS: Prothrombin Time (Protime)PT. 33.8 SECONDS (11.7-14.9)
== END 2025-04-25 18:00 | disposition home or self-care (01) ==
LOC: LAB 14:58
PROVIDERS: Family Provider Student in an Organized Health Care Education/Training Program; PCP Student in an Organized Health Care Education/Training Program; Referring Provider Internal Medicine Cardiovascular Disease; Visit Provider Internal Medicine Cardiovascular Disease
DX: Z79.01 Long term (current) use of anticoagulants (principal); Z95.2 Presence of prosthetic heart valve; Z98.890 Other specified postprocedural states
CPT/HCPCS: 36415; 85610

== ENCOUNTER 2025-06-12 14:50 | Outpatient (RCR) | payer BC, SELFPAY ==
[2025-06-12 16:52] LABS: Prothrombin Time (Protime)PT. 33.4 SECONDS (11.7-14.9)
== END 2025-06-24 18:00 | disposition home or self-care (01) ==
LOC: LAB 14:50
PROVIDERS: Family Provider Student in an Organized Health Care Education/Training Program; PCP Student in an Organized Health Care Education/Training Program; Referring Provider Internal Medicine Cardiovascular Disease; Visit Provider Internal Medicine Cardiovascular Disease
DX: Z79.01 Long term (current) use of anticoagulants (principal); Z95.2 Presence of prosthetic heart valve; Z98.890 Other specified postprocedural states; Z11.3 Encounter for screening for infections with a predominantly sexual mode of transmission
CPT/HCPCS: 36415; 85610